=== PATIENT | female | born 1990 ===

== ENCOUNTER 2017-01-15 08:40 | Emergency (ER) | payer OTHER ==
[2017-01-15] MEDS ORDERED: Lactated Ringer's 1,000 ML IV SCH ×3 (09:45→14:15)
[2017-01-15 09:56] LABS: RBC URINE 2 /hpf (0-3); URINE BACTERIA RARE (<OCC); URINE BILIRUBIN NEGATIVE (NEGATIVE); URINE BLOOD NEGATIVE (NEGATIVE); URINE COLOR STRAW (YELLOW); URINE GLUCOSE (UA) NEG (Normal); URINE KETONE NEGATIVE (NEGATIVE); URINE LEUKOCYTE ESTERASE NEG Leu/uL (Negative); URINE PROTEIN NEGATIVE (NEGATIVE); URINE UROBILINOGEN 0.2-1.0 mg/dL (0.2-1.0); WBC URINE 1 /hpf (0-5)
--- NOTE | 2017-01-15 15:06 | US ---
PROCEDURE: OB Pelvic Ultrasound HISTORY: r/o labor COMPARISON: None available. FINDINGS: UTERUS: Gestational sac: Single intrauterine gestation. Heart rate: 135 bpm. age (Ultrasound estimated): 33 weeks 6 days +/- 2 weeks 3 days Josephine-gestational hemorrhage: None. Date of delivery (Ultrasound estimated) : 02/27/2017 The uterine cervix is closed measures 5.5 centimeter. The amount of amniotic fluid is adequate. The placenta is seen at the anterior fundus. CERVIX: Long and closed. No cervical abnormality seen. RIGHT OVARY: Was not visualized LEFT OVARY: Was not visualized FREE FLUID: None. OTHER FINDINGS: None. IMPRESSION: Single intrauterine live with ultrasound estimated gestational age of 33 weeks 6 days +/- 2 weeks 3 days. Estimated date of delivery by ultrasound is 02/27/2017.
--- NOTE | 2017-01-15 16:58 | OBHP ---
Datetime: 01/15/2017 09:54 IP Adm Impression: , intrauterine IP Admit Plan: Observation/Evaluation Admit Comment, IP Provider: 26 YO F @33.3 w/ EDC; Mar 03 presents for lower abdominal pain sinc e 3pm yesterday, characterizes it as 2/10. Denies increase in intensity since the onset. - Denies LOF/ VB/ CTX - Admits to positive movments - PAtient has been taking her PNV. POBHX: 1 (2011) no complications PMH: none PSH: none Allergy: NKDA A/P - Continue monitoring - IVF 1 liter bolus - U/A - urine culture Carmen Villafana, PGY-2 OB Hospitalist Addendum: Pt seen and examined by me. Agree w/ above. 26 yo at 33+2 wks w / abdominal pain since 3 pm yesterday. Pt denies VB, LOF. Pt reports feeling ctxns. VE: closed and thick. CL cervix is 5.5 cm, long and closed. NST reactive. Ctxns became less fr equent and pt felt better after 2 and 1/2 liters of LR. Pt encouraged to stay well-hydrated. Pt dis charged home w/ PT labor precautions. Pt has an appoint w/ clinic on ., 01/17/2017. (ES) Extremities - PN: Normal Abdomen - PN: Normal Lungs - PN: Normal Heart - PN: Normal HEENT - PN: Normal General - PN: Normal FHR - Baseline A Provider: 140 EGA AdmitDate IP: 33.2 Vital Signs Provider: Reviewed; Within Normal Limits IP Chief Complaint: Maternal discomfort NICHD Variability Prov Fetus A: Minimal - Undetectable to <5bpm NICHD Accel Fetus A IP Provider: [id number] FHR Category Provider Fetus A: Category I NICHD Decel Fetus A IP Provider: None
--- NOTE | 2017-01-15 16:58 | OBDCSUM ---
Datetime: 01/15/2017 16:54 Discharged to, Provider: Other Follow up at, Provider: Follow up at, Provider: clinic Disch Instr Activity: May be up to bathroom; May be up for meals; May Shower Disch Instr Diet: Regular Discharge Time: 01/15/2017 16:55 Follow up in weeks, Provider: 2 days Follow up in weeks, Provider: ag Becerril Referrals: None Disch Activity Restrictions: No exercising; No lifting; No driving; Minimize walking; Minimize stair -climbing; No sexual activity; Nothing in vagina - [place], tampons, douche Discharge Diagnosis Prov Other: contractions at 33+2 weeks
[2017-01-15 21:54] VITALS: BP 87/61; PULSE 91; RESP 17; TEMP 97.9; O2SAT 100
== END 2017-01-15 17:00 | disposition home or self-care (01) ==
LOC: H.EROB2 08:40 → H.EROB 08:48 → H.EROB2 17:00
DX: O47.03 False labor before 37 completed weeks of gestation, third trimester (principal); Z3A.33 33 weeks gestation of pregnancy
CPT/HCPCS: 76815; 81003; 87086; 99284; J7120

== ENCOUNTER 2017-01-30 03:21 | Emergency (ER) | payer MEDICAID, OTHER ==
[2017-01-30 04:44] VITALS: BMI 30.2
[2017-01-30 05:18] LABS: RBC URINE < 1 /hpf (0-3); URINE BACTERIA RARE (<OCC); URINE BILIRUBIN NEGATIVE (NEGATIVE); URINE BLOOD NEGATIVE (NEGATIVE); URINE COLOR STRAW (YELLOW); URINE GLUCOSE (UA) NEG (Normal); URINE KETONE NEGATIVE (NEGATIVE); URINE LEUKOCYTE ESTERASE NEG Leu/uL (Negative); URINE PROTEIN NEGATIVE (NEGATIVE); URINE UROBILINOGEN 0.2-1.0 mg/dL (0.2-1.0); WBC URINE < 1 /hpf (0-5)
--- NOTE | 2017-01-30 07:50 | OBHP ---
Datetime: 01/30/2017 05:06 IP Adm Impression: , intrauterine IP Admit Plan: Observation/Evaluation; Discharge home Admit Comment, IP Provider: 26 yo F @35.3 weeks confirmed by u/s at 13.1 w. CC: lower abdominal and back pain since 9 pm. Rates pain at 3/10 when the baby moves. States she f eels contraction like pain every 15-20 minutes. + movements. Denies loss of fluid and vaginal bl eeding. Past OBhx: 1 term NVD 2011, denies complications. Past medical hx: none, denies. Past surg hx: none, denies Social hx: denies tobacco, alcohol, drugs. Allergies: NKDA Medications: PNV. care: [facility]. ROS: denies CP, SOB, n/v/d, headache, dizziness PE: BP: 104/68 General: AAOx3, no acute distress CV: S1/S2. RRR Resp: clear to auscultation bilaterally, normal effort Abd: Gravid, +BS Pelvic exam: 0cm dilated, 30% effaced Extremities: no edema A/P - Continue monitoring - U/A Re-eval 06:00 -UA negative for leuk esterase, nitrites. Specific gravity 1.002 -patient states contractions have diminished in severity Assessment: 26 yo at 35.3 weeks, not in active labor. 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 -Discussed with Dr. Michelle SantacruzPGY1 OB attending addendum: Patient seen and examined by me. Patient states that she presented because of concern of intermitt ent pelvic pressure which was associated with her contractions. He states that she has had increase i n pelvic pressure 2-3 days. Agree with above assessment and plan Patient reassured position is causing pelvic pressure and that this is expected gestational age. Pelvic Type - PN: Adequate Extremities - PN: Normal Abdomen - PN: Normal Back - PN: Normal Breast - PN: Not Done Lungs - PN: Normal Heart - PN: Normal Thyroid - PN: Not Done Neurologic - PN: Normal HEENT - PN: Normal General - PN: Normal FHR - Baseline A Provider: 160 Comments, ACOG Physical Exam: cervix not dilated, but 30% effaced. IP Hx Assessment: The History has been Reviewed and is Current EGA AdmitDate IP: 35.3 Vital Signs Provider: Reviewed; Within Normal Limits IP Chief Complaint: Uterine contractions NICHD Variability Prov Fetus A: Moderate 6-25bpm NICHD Accel Fetus A IP Provider: 15X15 FHR Category Provider Fetus A: Category I Dilatation, Provider: 0 Effacement, Provider: 30 Station, Provider: -2 Genitourinary Exam: Normal DTRs - PN: Not Done
[2017-01-30 10:46] VITALS: BP 96/62; PULSE 75; RESP 18; TEMP 98
== END 2017-01-30 06:30 | disposition home or self-care (01) ==
LOC: H.EROB2 03:21
DX: O47.03 False labor before 37 completed weeks of gestation, third trimester (principal); Z3A.32 32 weeks gestation of pregnancy